=== PATIENT | female | born 1950 | race Caucasian/White ===

== ENCOUNTER 2023-01-18 13:00 | Outpatient (RCR) | payer MEDICARE, BC, SELFPAY | END 2023-06-06 23:59 | disposition home or self-care (01) | PROVIDERS: PCP Surgery; Visit Provider Surgery | DX: M65.4 Radial styloid tenosynovitis [de Quervain] (principal); Z51.89 Encounter for other specified aftercare | CPT/HCPCS: 97035; 97140; 97165; 97530 ==

== ENCOUNTER 2023-02-04 06:25 | Day surgery (SDC) | payer MEDICARE, BC, SELFPAY ==
[2023-02-04] VITALS (9 sets, daily range): BP systolic 153–181; BP diastolic 72–81; PULSE 81–95; RESP 15–20; TEMP 36.4–36.6; O2SAT 93–98; BMI 25.4
[2023-02-04] MEDS: BUPIVACAINE 0.5% 30 ML INJECTION (06:16)
--- NOTE | 2023-02-04 07:09 | SUR.PREOP ---
SAME DAY SURGERY LOCAL INJECTION SITE VERIFICATION WAS PERFORMED BY SURGEON/PA AND PATIENT PRIOR TO LOCAL ANESTHETIC BEING INJECTED TO OPERATIVE SITE.
[2023-02-04] MEDS: ETHYL CHLORIDE 1 APPLICATION 1 APPLIC TOPICAL (07:10)
--- NOTE | 2023-02-04 07:52 | PM.ORPRC ---
Procedure Note Date of procedure: 02/04/23 Procedure: PREOPERATIVE DIAGNOSES: 1. Right de Quervain tenosynovitis-recalcitrant to nonoperative management POSTOPERATIVE DIAGNOSES: 1. Right de Quervain tenosynovitis-recalcitrant to nonoperative management NAME OF OPERATION: 1. Right de Quervain open 1st dorsal extensor compartment release with tenosynovectomy SURGEON: Harry Haley MD MESH WORKER: Toby Portillo PA-C - Of note, an paralegal assistant was critical for this case to aide in patient positioning, limb manipulation, tissue retraction, closure, and splinting. ANESTHESIA: Local anesthetic with 50:50 mixture of 1% lidocaine with epi and 0.5% Marcaine plain 8 mL total IMPLANTS: None. TOURNIQUET: None INDICATIONS: The patient is a pleasant, 72-year-old female who has battled right de Quervain tenosynovitis for a number of months. They have tried and failed nonoperative management including cortisone injection, bracing, medicines, ice, activity modification, etc. Therefore, surgery was indicated. FINDINGS: Abundant tenosynovitis along the right upper extremity 1st dorsal extensor compartments. Thickening to the 1st compartment sheath. No sub sheath was encountered. PROCEDURE: Following a thorough discussion of risks, benefits, and alternatives, consent was obtained and the operative extremity was marked. The patient was brought to the operating room and placed supine on the operating table. Induction of anesthesia was achieved. Appropriate time out was performed identifying proper patient, site and procedure. No antibiotics were administered preoperatively as this was a local case. The right upper extremity was prepped and draped in the appropriate sterile fashion using ChloraPrep prep. The limb was exsanguinated and the tourniquet inflated. A transverse incision was made approximately 1-1.5 cm proximal to the radial styloid. Sharp incision through skin and blunt dissection through subcutaneous tissue allowed us to identify and protect the crossing superficial branch of the radial nerve. The 1st dorsal extensor compartment was identified and released on the more dorsal aspect. APL and EPB tendons were identified. The compartment was completely released and the tenosynovitis was resected along either tendon. The intervening septum was also resected. At this stage, the wound was thoroughly irrigated with normal saline. Closure performed with 3-0 Vicryl subcutaneous and 4-0 Monocryl for subcuticular closure. Dressings were applied. The patient was awoken from anesthesia and transferred to PACU in stable condition. PLAN: 1. Elevate operative extremity. 2. Ice, acetominphen, ibuprofen, and/or percocet PRN. 3. Follow up with PA visit in 7-10 days for wound check and OT initiation PRN.
== END 2023-02-04 08:07 | disposition home or self-care (01) ==
PROVIDERS: PCP Surgery; Visit Provider Orthopaedic Surgery Sports Medicine
PROC: (CPT 25000; principal; 2023-02-04 07:15)
DX: M65.4 Radial styloid tenosynovitis [de Quervain] (principal)
CPT/HCPCS: 25116; J3490

== ENCOUNTER 2023-12-16 15:15 | Outpatient (RCR) | payer MEDICARE, BC, SELFPAY | END 2024-03-12 10:40 | disposition home or self-care (01) | PROVIDERS: PCP Surgery; Visit Provider Surgery | DX: M54.50 Low back pain, unspecified (principal); G89.29 Other chronic pain; M54.2 Cervicalgia; M25.512 Pain in left shoulder; Z51.89 Encounter for other specified aftercare | CPT/HCPCS: 97110; 97140; 97161 ==

== ENCOUNTER 2024-11-04 12:30 | Outpatient (RCR) | payer MEDICARE, BC, SELFPAY | END 2025-03-04 23:59 | disposition home or self-care (01) | PROVIDERS: PCP Surgery; Visit Provider Surgery | DX: N39.3 Stress incontinence (female) (male) (principal); Z51.89 Encounter for other specified aftercare | CPT/HCPCS: 97112; 97140; 97162; 97530 ==